=== PATIENT | male | born 1955 | race Two or more races ===

== ENCOUNTER 2020-01-03 09:34 | Outpatient (CLI) | payer MEDICARE ==
[~2020-01-03 09:34] MED LIST: CARV3.122 PO; INSU100V7 SQ; SEVE800T8 PO
== END 2020-01-03 23:59 | disposition home or self-care (01) ==
LOC: MSC 09:34
PROVIDERS: ATTEND Internal Medicine
DX: M25.559 Pain in unspecified hip (principal); F41.9 Anxiety disorder, unspecified; R53.81 Other malaise; I12.0 Hypertensive chronic kidney disease with stage 5 chronic kidney disease or end stage renal disease; N18.6 End stage renal disease; Z99.2 Dependence on renal dialysis; I25.10 Atherosclerotic heart disease of native coronary artery without angina pectoris; D64.9 Anemia, unspecified
CPT/HCPCS: 72110; 73521; G0463

== ENCOUNTER 2020-08-26 11:29 | Outpatient (CLI) | payer MEDICARE | END 2020-08-26 23:59 | disposition home or self-care (01) | LOC: MSC 11:29 | PROVIDERS: ATTEND Internal Medicine | DX: M54.5 Low back pain (principal); R19.7 Diarrhea, unspecified; M25.559 Pain in unspecified hip; R53.81 Other malaise; I12.0 Hypertensive chronic kidney disease with stage 5 chronic kidney disease or end stage renal disease; N18.6 End stage renal disease; Z99.2 Dependence on renal dialysis; I25.10 Atherosclerotic heart disease of native coronary artery without angina pectoris; D64.9 Anemia, unspecified ==

== ENCOUNTER 2020-09-02 10:05 | Outpatient (CLI) | payer MEDICARE | END 2020-09-02 23:59 | disposition home or self-care (01) | LOC: CT 10:05 | PROVIDERS: ATTEND Internal Medicine | DX: S22.089A Unspecified fracture of T11-T12 vertebra, initial encounter for closed fracture (principal); M47.817 Spondylosis without myelopathy or radiculopathy, lumbosacral region; M47.815 Spondylosis without myelopathy or radiculopathy, thoracolumbar region; M51.25 Other intervertebral disc displacement, thoracolumbar region; M51.27 Other intervertebral disc displacement, lumbosacral region; M48.05 Spinal stenosis, thoracolumbar region; K40.20 Bilateral inguinal hernia, without obstruction or gangrene, not specified as recurrent; K80.20 Calculus of gallbladder without cholecystitis without obstruction; K57.30 Diverticulosis of large intestine without perforation or abscess without bleeding; N26.1 Atrophy of kidney (terminal); N28.1 Cyst of kidney, acquired; M51.45 Schmorl's nodes, thoracolumbar region; I51.7 Cardiomegaly; I70.0 Atherosclerosis of aorta; J84.10 Pulmonary fibrosis, unspecified; X58.XXXA Exposure to other specified factors, initial encounter; Y93.89 Activity, other specified; Y92.89 Other specified places as the place of occurrence of the external cause; Y99.8 Other external cause status | CPT/HCPCS: 72148-TC ==

== ENCOUNTER 2020-09-09 11:07 | Inpatient (IN) | payer MEDICARE, OTHER ==
[~2020-09-09] VITALS: Ht 170.2 cm; Wt 79.4 kg
--- NOTE | 2020-09-09 11:25 | NUR ---
BIB FAMILY C/O BILAT FLANK PAIN S/P GLF 10 DAYS AGO. STS LANDED ON L SIDE. PT IS FEBRILE PROCESSING ASSISTANT. PATIENT A/OX4, BREATHING EVEN AND UNLABORED, NO SOB NOTED. UNABLE TO GIVE A URINE SAMPLE AT THIS TIME. LFA AV FISTULA NOTED.
--- NOTE | 2020-09-09 11:50 | NUR ---
IV LINE ESTABLISHED, BLOOD DRAWN AND SENT TO LAB.
[2020-09-09] MEDS ORDERED: ACETAMINOPHEN ES 500 MG TABLET ONE (11:58)
[2020-09-09] MEDS ORDERED: ACETAMINOPHEN ES 500 MG TABLET PO ONE (12:00)
[2020-09-09 12:14] LABS: BASOPHILS % (AUTO) 0.3 % (0.0-2.0); EOSINOPHILS % (AUTO) 0.6 % (0.0-6.0); HEMATOCRIT 35 % (39-51); HEMOGLOBIN 11.3 g/dL (13.5-17.5); LYMPHOCYTES # (AUTO) 0.3 K/uL (0.8-4.8); LYMPHOCYTES % (AUTO) 2.6 % (20.0-44.0); MEAN CORPUSCULAR HGB CONC 33 g/dl (31.0-36.0); MEAN CORPUSCULAR VOLUME 90 fL (80-96); MONOCYTES # (AUTO) 0.8 K/uL (0.1-1.30); MONOCYTES % (AUTO) 5.9 % (2.0-12.0); NEUTROPHILS # (AUTO) 12.1 K/uL (1.8-8.9); NEUTROPHILS % (AUTO) 90.6 % (43.0-81.0); PLATELET COUNT (AUTO) 136 K/uL (150-450); RED BLOOD CELL COUNT(AUTO) 3.85 MIL/uL (4.5-6.0); WHITE BLOOD COUNT (AUTO) 13.4 K/uL (4.3-11.0)
[2020-09-09 12:23] LABS: CALCIUM, SERUM 9.3 mg/dL (8.5-10.1); CARBON DIOXIDE 21 mmol/L (21-32); CHLORIDE 97 mmol/L (98-107); GLUCOSE 155 mg/dL (74-106); POTASSIUM 5.4 mmol/L (3.5-5.1); SODIUM SERUM 131 mmol/L (136-145); UREA NITROGEN, BLOOD 47 mg/dL (7-18)
[2020-09-09 12:28] LABS: ALANINE AMINOTRANSFERASE < 6 U/L (12-78); ALBUMIN 3.5 g/dL (3.4-5.0); ALKALINE PHOSPHATASE 205 U/L (46-116); ASPARTATE AMINOTRANSFERASE 9 U/L (15-37); BILIRUBIN,DIRECT 0.1 mg/dL (0.0-0.2); BILIRUBIN,TOTAL 0.4 mg/dL (0.2-1.0); CREATININE 7.8 mg/dL (0.6-1.3)
[2020-09-09] MEDS ORDERED: CEFTAZIDIME 1 G in IV D5W 50 ML IV ONE (12:30)
--- NOTE | 2020-09-09 12:35 | NUR ---
SUBMITTED MOVE SHEET
--- NOTE | 2020-09-09 12:36 | NUR ---
PAGED EPIC GLACING MACHINE TENDER
--- NOTE | 2020-09-09 12:52 | NUR ---
DR BACK SPEAKING WITH HEADING AND PRIMING OPERATOR DR FUNK FOR ADMISSION
[2020-09-09] MEDS ORDERED: SUCR500T PO (12:54)
[2020-09-09] MEDS ORDERED: IBUP-1953 PO (12:54)
[2020-09-09] MEDS ORDERED: AURYXIA PO (12:54)
[2020-09-09] MEDS ORDERED: CINA30TA2 PO (12:54)
[2020-09-09] MEDS ORDERED: FOLI0.8T2 PO (12:54)
[2020-09-09] MEDS ORDERED: ASPI-1420 PO (12:54)
[2020-09-09] MEDS ORDERED: LOSA100T31 PO (12:54)
[2020-09-09] MEDS ORDERED: METRONIDAZOLE 500MG/ NS 100ML 500 MG in PREMIX 1 EA IV SCH (13:00)
[2020-09-09] MEDS ORDERED: MAGNESIUM HYDROXIDE 30 ML UDC PO PRN ×2 (13:00→15:15)
[2020-09-09] MEDS ORDERED: ACETAMINOPHEN 325 MG TABLET PO PRN ×2 (13:00→15:15)
[2020-09-09] MEDS ORDERED: Z GUARD REMEDY 2 OZ OINT TP PRN ×2 (13:00→15:15)
[2020-09-09] MEDS ORDERED: LABETALOL 20 MG/4 ML VIAL IV PRN ×2 (13:00→15:15)
[2020-09-09] MEDS ORDERED: CEFTRIAXONE 1 G in IV D5W 50 ML IV SCH (13:00)
[2020-09-09] MEDS ORDERED: *INSULIN REGULAR(HUMULIN R)HUM 100 UNIT/ML VIAL SQ PRN (13:00)
[2020-09-09] MEDS ORDERED: INSULIN REGULAR, HUMAN 100 UNIT/ML 3 ML VIAL SQ PRN (13:00)
[2020-09-09] MEDS ORDERED: ONDANSETRON HCL/PF 4 MG/2 ML VIAL IVP PRN ×2 (13:00→15:15)
[2020-09-09] MEDS ORDERED: DEXTROSE 50%-WATER 50 ML DISP.SYRIN IV PRN ×2 (13:00→15:15)
[2020-09-09] MEDS ORDERED: hydrALAZINE HCL IV 20 MG VIAL IV PRN ×2 (13:00→15:15)
[2020-09-09] MEDS ORDERED: ENOXAPARIN SODIUM 40 MG/0.4 ML DISP.SYRIN SQ SCH ×2 (13:00→15:15)
[2020-09-09] MEDS ORDERED: MORPHINE SULFATE INJ 2 MG/ML DISP.SYRIN IV PRN (13:00)
[2020-09-09] MEDS ORDERED: MAG HYDROX/AL HYDROX/SIMETH 30 ML UDC PO PRN ×2 (13:00→15:15)
--- NOTE | 2020-09-09 13:21 | NUR ---
CALLED NURSING ILIANA DORAN. NO BEDS YET
--- NOTE | 2020-09-09 15:06 | NUR ---
report given to Lorraine MARTINEZ for derik.
--- NOTE | 2020-09-09 15:10 | NUR ---
wheeled patient via gurnney accompanied by RN and emt in no distress. RN at bed side to assume care.
--- NOTE | 2020-09-09 15:20 | NUR ---
CAN CRIMPER ADMITTING NOTES RECEIVED PATIENT IN BED, AWAKE, A/O X4. PATIENT ON ROOM AIR. COMPLAINING OF PAIN. IV ACCESS ON R HAND G # 20. WILL CONTINUE TO MONITOR PATIENT.
--- NOTE | 2020-09-09 16:28 | NUR ---
DIE ATTACHER NOTES PATIENT WITH FEVER OF 102.9. PRN TYLENOL ADMINISTERED.
[2020-09-09] MEDS: METRONIDAZOLE 500MG/ NS 100ML 500 MG in PREMIX 1 EA IV SCH ×2 (16:58→21:10)
[2020-09-09] MEDS ORDERED: CARVEDILOL 3.125 MG TABLET PO SCH (17:00)
[2020-09-09] MEDS: BLOOD SUGAR DIAGNOSTIC 1 EACH STRIP VI SCH ×2 (17:04→22:26)
[2020-09-09] MEDS ORDERED: BLOOD SUGAR DIAGNOSTIC 1 EACH STRIP VI SCH (17:30)
[2020-09-09] MEDS: MORPHINE SULFATE INJ 2 MG/ML DISP.SYRIN IV PRN (17:57)
[2020-09-09] MEDS: CARVEDILOL 3.125 MG TABLET PO SCH (17:59)
[2020-09-09] MEDS: CEFTRIAXONE 1 G in IV D5W 50 ML IV SCH (18:00)
--- NOTE | 2020-09-09 19:06 | NUR ---
MACHINE CLOTH TRIMMER NOTES PATIENT COMPLAINING OF LEFT FLANK PAIN 8 OUT OF 10. PRN MORPHINE ADMINISTERED. WILL REASSESS.
--- NOTE | 2020-09-09 19:33 | NUR ---
CREPE SOLE WIRE BRUSHER NOTES PATIENT RESTED COMFORTABLY. ENDORSED TO SPECIAL CRIMES INVESTIGATOR NURSE FOR CK.
--- NOTE | 2020-09-09 19:40 | NUR ---
RN OPENING NOTES PT RECEIVED IN BED. A&OX4. PT IS ON ROOM AIR. CURRENTLY ON BED REST. PT SKIN IS INTACT. PT HAS IV LINE GAUGE 20 ON RIGHT HAND, FLUSHED, PATENT, AND INTACT. ALL SAFETY MEASURES IMPLEMENTED. CALL LIGHT WITHIN REACH. BED ALARM ON. BED LOCKED AND IN LOWEST POSITION,. WILL CONTINUE TO MONITOR.
[2020-09-09 20:00] VITALS: BP 97/38
[2020-09-09] MEDS: HEPARIN SODIUM, PORCINE 5000 UNITS/1 ML VIAL SQ SCH (21:11)
[2020-09-09] MEDS ORDERED: INSULIN GLARGINE HUM REC ANLOG 7 UNIT SQ SCH (22:00)
--- NOTE | 2020-09-09 22:00 | NUR ---
RN NOTE WILL ADMINISTER FLAGYL AT 0100 INSTEAD OF 2200 DUE TO PREVIOUS ADMINISTRATION AT 1658. MEDICATION IS Q8H. FIRST SCHEDULE DOSE WAS AT 1600, SECOND SCHEDULED DOSE SHOULD BE 0000, BUT SAYS 2200, WHICH IS AN ERROR. WILL FOLLOW UP WITH PHARMACY TO CORRECT SCHEDULE IN MORNING. Addendum: 09/10/20 at 0002 by FARRAH BAIRD RN MANAGER DISASTER RECOVERYJUAN MCLAUGHLIN WELL AWARE.
--- NOTE | 2020-09-09 22:26 | NUR ---
RN NOTE PT BLOOD SUGAR WAS 116. NO INSULIN REQUIRED AT THIS TIME.
[2020-09-09] MEDS: *INSULIN REGULAR(HUMULIN R)HUM 100 UNIT/ML VIAL SQ PRN (22:29)
[2020-09-10] VITALS: BP 104/44
[2020-09-10] MEDS: METRONIDAZOLE 500MG/ NS 100ML 500 MG in PREMIX 1 EA IV SCH ×4 (00:45→20:28)
[2020-09-10 04:00] VITALS: BP 121/48
[2020-09-10] MEDS: MORPHINE SULFATE INJ 2 MG/ML DISP.SYRIN IV PRN ×2 (04:21→20:28)
--- NOTE | 2020-09-10 06:00 | NUR ---
RN NOTE LABORATORY CALLED ABOUT CRITICAL RESULT. CULTURE SHOWED GRAM (-) NOE SEEN ON GRAM STAIN. CONTACTED LUIS CHAPARRO NP ALL ORDERS COVERED ALREADY.
--- NOTE | 2020-09-10 06:32 | NUR ---
RN NOTE SPOKE WITH ALBIN FROM [facility], DID NOT HAVE INFO ABOUT PATIENT DISCHARGE TO FACILITY, WANTED TO CONFIRM WITH INSTALLATION DRAFTER. WAITING TO HEAR BACK. LISSETTE FRIEND RN CALLED AMBULANCE TO [facility]. Addendum: 09/10/20 at 0650 by FARRAH BAIRD RN WRONG ENTRY
--- NOTE | 2020-09-10 06:47 | NUR ---
RN CLOSING NOTES NO SIGNIFICANT CHANGES IN PT CONDITION. NO S/S OF RESP DISTRESS/SOB. ALL DUE MEDS GIVEN. PT KEPT CLEAN AND COMFORTABLE. ALL SAFETY MEASURES IMPLEMENTED. WILL ENDORSE TO MORNING SHIFT RN FOR CK.
--- NOTE | 2020-09-10 07:15 | NUR ---
RN NOTE PATIENT OBSERVED ON BED, AWAKE ALERT AND ORIENTED X4, ABLE TO VERBALIZE NEEDS, BREATHING EVEN AND UNLABORED, O2 SAT OF 98% ON RA, ON TELE MONITOR SINUS BRADYCARDIA OF 55 AT THIS TIME, NO COMPLAINS OF PAIN, CONTINENT ON BOWEL AND BLADDER, IV PATENT ON RIGHT HAND G# 20 FLUSHING WELL, ISOLATION PRECAUTION OBSERVED, CALL LIGHT WITHIN REACH, BED WHEELS LOCK, SAFETY MEASURES OBSERVED, CALL LIGHT WITHIN REACH.
[2020-09-10] MEDS: BLOOD SUGAR DIAGNOSTIC 1 EACH STRIP VI SCH ×4 (07:44→21:56)
[2020-09-10] MEDS: INSULIN REGULAR, HUMAN 100 UNIT/ML 3 ML VIAL SQ PRN (07:44)
[2020-09-10 08:00] VITALS: BP 121/48
[2020-09-10] MEDS: CARVEDILOL 3.125 MG TABLET PO SCH ×2 (08:28→16:15)
[2020-09-10] MEDS: HEPARIN SODIUM, PORCINE 5000 UNITS/1 ML VIAL SQ SCH ×2 (08:28→21:47)
--- NOTE | 2020-09-10 08:50 | NUR ---
RN NOTE PATIENT RECIVED LAST DOSE OF FLAGYL 0045, NOTIFIED AND CLARIFIED WITH PHARMACY ABOUT LAST ADMINISTRATION OF FLAGYL OK TO GIVE 09 MEDICATION Addendum: 09/10/20 at 1022 by SEAN GRANADOS RN RN NOTE PATIENT RECEIVED LAST DOSE OF FLAGYL 0045, NOTIFIED AND CLARIFIED WITH PHARMACY ABOUT LAST ADMINISTRATION OF FLAGYL, OK TO GIVE 0800 , MEDICATION WAS ORIGNIALY SCHEDULED FOR 0500, MEDICATION ORDER IS Q8H.
[2020-09-10 09:20] LABS: BASOPHILS # (AUTO) 0.1 K/uL (0.0-0.2); BASOPHILS % (AUTO) 0.8 % (0.0-2.0); EOSINOPHILS % (AUTO) 0.2 % (0.0-6.0); HEMATOCRIT 31 % (39-51); HEMOGLOBIN 10.4 g/dL (13.5-17.5); LYMPHOCYTES # (AUTO) 0.3 K/uL (0.8-4.8); LYMPHOCYTES % (AUTO) 3.6 % (20.0-44.0); MEAN CORPUSCULAR HGB CONC 34 g/dl (31.0-36.0); MEAN CORPUSCULAR VOLUME 88 fL (80-96); MONOCYTES # (AUTO) 0.5 K/uL (0.1-1.30); MONOCYTES % (AUTO) 6.3 % (2.0-12.0); NEUTROPHILS # (AUTO) 6.9 K/uL (1.8-8.9); NEUTROPHILS % (AUTO) 89.1 % (43.0-81.0); PLATELET COUNT (AUTO) 132 K/uL (150-450); RED BLOOD CELL COUNT(AUTO) 3.52 MIL/uL (4.5-6.0); WHITE BLOOD COUNT (AUTO) 7.7 K/uL (4.3-11.0)
[2020-09-10 09:36] LABS: CALCIUM, SERUM 9.1 mg/dL (8.5-10.1); POTASSIUM 5.2 mmol/L (3.5-5.1)
[2020-09-10 09:43] LABS: ALBUMIN 3.2 g/dL (3.4-5.0); BILIRUBIN,TOTAL 0.4 mg/dL (0.2-1.0); TOTAL PROTEIN, SERUM 7.6 g/dL (6.4-8.2)
[2020-09-10 09:45] LABS: CREATININE 9.9 mg/dL (0.6-1.3)
--- NOTE | 2020-09-10 09:52 | NUR ---
RN NOTE PATIENT SEEN BY DR SOLORIO, LAB VALUES REPORTED TO MD, CREATININE OF 9.9, PATIENT ON HD MD AWARE, WILL CONTINUE TO MONITOR.
[2020-09-10] MEDS: *INSULIN REGULAR(HUMULIN R)HUM 100 UNIT/ML VIAL SQ PRN ×3 (11:29→21:57)
[2020-09-10 12:00] VITALS: BP 128/51
--- NOTE | 2020-09-10 14:09 | NUR ---
RN NOTE PHARMACIST RECOMMENDATION ADMINISTER FLAGYL AT 1400 THEN NEXT DOSE AT 2100, NO ASE NOTED AT THIS TIME WILL CONTINUE TO MONITOR.
[2020-09-10 16:00] VITALS: BP 133/58
[2020-09-10] MEDS: CEFTRIAXONE 1 G in IV D5W 50 ML IV SCH (16:16)
--- NOTE | 2020-09-10 18:20 | NUR ---
RN NOTE PATIENT OBSERVED ON BED, AWAKE ALERT AND ORIENTED X4, ABLE TO VERBALIZE NEEDS, BREATHING EVEN AND UNLABORED, O2 SAT OF 98% ON RA, ON TELE MONITOR SINUS BRADYCARDIA OF 56 AT THIS TIME, NO COMPLAINS OF PAIN, CONTINENT ON BOWEL AND BLADDER, IV PATENT ON RIGHT HAND G# 20 FLUSHING WELL ON IV ATB NO ASE NOTED, ISOLATION PRECAUTION OBSERVED, MD AWARE OF PATIENT CURRENT CONDITION CALL LIGHT WITHIN REACH, BED WHEELS LOCK, SAFETY MEASURES OBSERVED, CALL LIGHT WITHIN REACH. WILL ENDORSE TO NOC SHIFT
[2020-09-10 20:00] VITALS: BP 157/58
--- NOTE | 2020-09-10 20:00 | NUR ---
RN NOTE RECEIVED PT IN BED, ALERT ORIENTED X4. ON ROOM AIR. DENIES ANY SOB OR CHEST PAIN. TELE MONITOR SHOWS SR WITH HR OF 60. PT COMPLAINED OF LEFT LOWER BACK PAIN. NO SIGNS OF DISTRESS NOTED. ALL SAFETY MEASURES IN PLACE. WILL CONTINUE TO MONITOR.
--- NOTE | 2020-09-10 21:57 | NUR ---
rn note fsbs at 107. no insulin coverage given. will continue to monitor.
[2020-09-11] VITALS: BP 143/61
--- NOTE | 2020-09-11 00:30 | NUR ---
RN NOTE PT TEMP 99.9. COOLING MEASURES APPLIED. WILL CONTINUE TO MONITOR.
[2020-09-11] MEDS: MORPHINE SULFATE INJ 2 MG/ML DISP.SYRIN IV PRN ×2 (02:20→13:08)
--- NOTE | 2020-09-11 02:29 | NUR ---
rn note pt complained of left lower back 8/10 pain. morphine iv given
[2020-09-11 04:00] VITALS: BP 156/58
[2020-09-11] MEDS: METRONIDAZOLE 500MG/ NS 100ML 500 MG in PREMIX 1 EA IV SCH (05:20)
[2020-09-11 06:18] LABS: BASOPHILS % (AUTO) 0.5 % (0.0-2.0); HEMATOCRIT 30 % (39-51); HEMOGLOBIN 9.9 g/dL (13.5-17.5); LYMPHOCYTES # (AUTO) 0.5 K/uL (0.8-4.8); LYMPHOCYTES % (AUTO) 10.3 % (20.0-44.0); MEAN CORPUSCULAR HGB CONC 33 g/dl (31.0-36.0); MEAN CORPUSCULAR VOLUME 88 fL (80-96); MONOCYTES # (AUTO) 0.5 K/uL (0.1-1.30); MONOCYTES % (AUTO) 10.2 % (2.0-12.0); NEUTROPHILS # (AUTO) 3.5 K/uL (1.8-8.9); PLATELET COUNT (AUTO) 131 K/uL (150-450); RED BLOOD CELL COUNT(AUTO) 3.36 MIL/uL (4.5-6.0); WHITE BLOOD COUNT (AUTO) 4.6 K/uL (4.3-11.0)
--- NOTE | 2020-09-11 06:45 | NUR ---
RN NOTE PT SITTING ON CHAIR. DENIES ANY PAIN OR SOB. TOLERATING ROOM AIR. NO DISTRESS NOTED. PT ABLE TO MAKE NEEDS KNOWN. AV FISTULA ON LFA, BRUIT AND THRILL PRESENT. NO BLEEDING NOTED. NEEDS ATTENDED. KEPT COMFORTABLE. ALL SAFETY MEASURES MAINTAINED. WILL ENDORSE TO NEXT SHIFT NURSE FOR CK.
[2020-09-11 07:09] LABS: BILIRUBIN,TOTAL 0.5 mg/dL (0.2-1.0); CALCIUM, SERUM 8.8 mg/dL (8.5-10.1); TOTAL PROTEIN, SERUM 7.1 g/dL (6.4-8.2)
--- NOTE | 2020-09-11 07:10 | NUR ---
RN NOTE PATIENT OBSERVED ON BED, AWAKE ALERT AND ORIENTED X4, ABLE TO VERBALIZE NEEDS, BREATHING EVEN AND UNLABORED, O2 SAT OF 98% ON RA, PATIENT ON ATB NO ASE NOTED AT THIS TIME, ON TELE MONITOR SINUS BRADYCARDIA OF 56 AT THIS TIME, NO COMPLAINS OF PAIN, CONTINENT ON BOWEL AND BLADDER, IV PATENT ON RIGHT HAND G# 20 FLUSHING WELL, ISOLATION PRECAUTION OBSERVED, CALL LIGHT WITHIN REACH, BED WHEELS LOCK, SAFETY MEASURES OBSERVED, CALL LIGHT WITHIN REACH.
[2020-09-11] MEDS: BLOOD SUGAR DIAGNOSTIC 1 EACH STRIP VI SCH ×4 (07:45→22:56)
[2020-09-11] MEDS ORDERED: INSULIN REGULAR, HUMAN 100 UNIT/ML 3 ML VIAL ONE ×2 (07:58→08:01)
[2020-09-11 08:00] VITALS: BP 148/62
[2020-09-11] MEDS: INSULIN REGULAR, HUMAN 100 UNIT/ML 3 ML VIAL SQ PRN ×3 (08:06→16:59)
[2020-09-11] MEDS: CARVEDILOL 3.125 MG TABLET PO SCH ×2 (08:14→17:12)
[2020-09-11] MEDS: HEPARIN SODIUM, PORCINE 5000 UNITS/1 ML VIAL SQ SCH ×2 (08:16→22:51)
--- NOTE | 2020-09-11 10:35 | NUR ---
RN NOTE PATIENT SEEN BY DR. SOLORIO, LAB VALUES RELAYED TO , CONTACTED DR. QUINTEROS FOR PATIENT HD, WILL HAVE HD TODAY AT 1300.
[2020-09-11 12:00] VITALS: BP 137/62
[2020-09-11] MEDS ORDERED: GENTAMICIN 80 MG in IV D5W 50 ML IV PRN (13:00)
[2020-09-11] MEDS: METRONIDAZOLE 500 MG TABLET PO SCH ×2 (13:07→22:47)
[2020-09-11] MEDS ORDERED: GENTAMICIN 100 MG in IV D5W 100 ML IV ONE (14:00)
--- NOTE | 2020-09-11 15:30 | NUR ---
RN NOTE PATIENT WHEELED TO MRI LAB, PATIENT CONDITION WNL AT THIS TIME, WILL CONTINUE TO MONITOR.
[2020-09-11 16:00] VITALS: BP 146/62
--- NOTE | 2020-09-11 18:55 | NUR ---
RN NOTE PATIENT OBSERVED ON BED, AWAKE ALERT AND ORIENTED X4, ABLE TO VERBALIZE NEEDS, BREATHING EVEN AND UNLABORED, O2 SAT OF 97% ON RA, PATIENT ON ATB NO ASE NOTED AT THIS TIME, ON TELE MONITOR SINUS BRADYCARDIA OF 56 AT THIS TIME, NO COMPLAINS OF PAIN, CONTINENT ON BOWEL AND BLADDER, IV PATENT ON RIGHT HAND G# 20 FLUSHING WELL ON IV ATB NO ASE NOTED, ISOLATION PRECAUTION OBSERVED, PATIENT FOR HEMODIALYSIS SEEN BY AUTOMATIC LATHE SETTER, CALL LIGHT WITHIN REACH, BED WHEELS LOCK, SAFETY MEASURES OBSERVED, CALL LIGHT WITHIN REACH, WILL ENDORSE TO NOC SHIFT
[2020-09-11 20:00] VITALS: BP 149/71
--- NOTE | 2020-09-11 20:00 | NUR ---
RN NOTE RECEIVED PT ALERT ORIENTED, PT STARTED DIALYSIS. DENIES ANY PAIN AT THIS TIME, NO DISTRESS NOTED. DIALYSIS NURSE AT BEDSIDE. IV PATENT AND INTACT. ALL SAFETY IN PLACE. WILL CONTINUE TO MONITOR.
--- NOTE | 2020-09-11 22:40 | NUR ---
RN NOTE PT DONE WITH DIALYSIS. NO SIGNS OF DISTRESS NOTED. REMOVED 2500 CC. WILL CONTINUE TO MONITOR.
[2020-09-11] MEDS ORDERED: GENTAMICIN 80 MG/2 ML VIAL ONE (22:49)
--- NOTE | 2020-09-11 22:57 | NUR ---
rn note fsbs at 135. pt refused to have the insulin. will continue to monitor.
[2020-09-11] MEDS: *INSULIN REGULAR(HUMULIN R)HUM 100 UNIT/ML VIAL SQ PRN (23:51)
[2020-09-12] VITALS: BP 144/74
--- NOTE | 2020-09-12 00:15 | NUR ---
rn note random gentamycin <2. will give iv gentamycin post hd as ordered.
[2020-09-12] MEDS: MORPHINE SULFATE INJ 2 MG/ML DISP.SYRIN IV PRN ×3 (00:23→18:01)
--- NOTE | 2020-09-12 00:23 | NUR ---
RN NOTE PT COMPLAINED OF LEFT SIDED/LOWER BACK PAIN. MORPHINE IV GIVEN ORDERED. WILL CONTINUE TO MONITOR.
[2020-09-12 04:00] VITALS: BP 150/69
[2020-09-12] MEDS: METRONIDAZOLE 500 MG TABLET PO SCH ×2 (05:28→12:28)
--- NOTE | 2020-09-12 07:00 | NUR ---
RN NOTE NO SIGNIFICANT CHANGES NOTED. DENIES ANY PAIN OR SOB. TOLERATING ROOM AIR. NO DISTRESS NOTED. PT ABLE TO MAKE NEEDS KNOWN. AV FISTULA ON LFA, BRUIT AND THRILL PRESENT. NO BLEEDING NOTED. NEEDS ATTENDED. KEPT COMFORTABLE. ALL SAFETY MEASURES MAINTAINED. WILL ENDORSE TO NEXT SHIFT NURSE FOR CK.
[2020-09-12 07:16] LABS: BASOPHILS % (AUTO) 1.1 % (0.0-2.0); EOSINOPHILS % (AUTO) 4.8 % (0.0-6.0); HEMATOCRIT 29 % (39-51); HEMOGLOBIN 9.8 g/dL (13.5-17.5); LYMPHOCYTES # (AUTO) 0.5 K/uL (0.8-4.8); LYMPHOCYTES % (AUTO) 11.7 % (20.0-44.0); MEAN CORPUSCULAR HGB CONC 34 g/dl (31.0-36.0); MEAN CORPUSCULAR VOLUME 87 fL (80-96); MONOCYTES # (AUTO) 0.6 K/uL (0.1-1.30); MONOCYTES % (AUTO) 13.6 % (2.0-12.0); NEUTROPHILS # (AUTO) 2.8 K/uL (1.8-8.9); NEUTROPHILS % (AUTO) 68.8 % (43.0-81.0); PLATELET COUNT (AUTO) 175 K/uL (150-450); RED BLOOD CELL COUNT(AUTO) 3.32 MIL/uL (4.5-6.0); WHITE BLOOD COUNT (AUTO) 4.1 K/uL (4.3-11.0)
--- NOTE | 2020-09-12 07:58 | NUR ---
RN NOTE PATIENT OBSERVED ON BED, AWAKE ALERT AND ORIENTED X4, ABLE TO VERBALIZE NEEDS, BREATHING EVEN AND UNLABORED, O2 SAT OF 97% ON RA, S/P HEMODIALYSIS, PATIENT ON ATB NO ASE NOTED AT THIS TIME, ON TELE MONITOR SINUS BRADYCARDIA OF 57 AT THIS TIME, NO COMPLAINS OF PAIN, CONTINENT ON BOWEL AND BLADDER, IV PATENT ON RIGHT HAND G# 20 FLUSHING WELL, ISOLATION PRECAUTION OBSERVED, CALL LIGHT WITHIN REACH, BED WHEELS LOCK, SAFETY MEASURES OBSERVED, CALL LIGHT WITHIN REACH.
[2020-09-12 08:00] VITALS: BP 146/69
[2020-09-12] MEDS: BLOOD SUGAR DIAGNOSTIC 1 EACH STRIP VI SCH ×3 (08:11→16:48)
[2020-09-12] MEDS: INSULIN REGULAR, HUMAN 100 UNIT/ML 3 ML VIAL SQ PRN ×3 (08:11→16:49)
[2020-09-12] MEDS: CARVEDILOL 3.125 MG TABLET PO SCH ×2 (09:47→16:48)
[2020-09-12] MEDS: HEPARIN SODIUM, PORCINE 5000 UNITS/1 ML VIAL SQ SCH (09:50)
[2020-09-12 10:14] LABS: ALBUMIN 3.3 g/dL (3.4-5.0); BILIRUBIN,TOTAL 0.5 mg/dL (0.2-1.0); CALCIUM, SERUM 9.4 mg/dL (8.5-10.1); POTASSIUM 4.6 mmol/L (3.5-5.1); TOTAL PROTEIN, SERUM 7.7 g/dL (6.4-8.2)
[2020-09-12 11:05] LABS: CREATININE 8.4 mg/dL (0.6-1.3)
[2020-09-12 12:00] VITALS: BP 145/72
--- NOTE | 2020-09-12 12:03 | NUR ---
RN NOTE SEEN BY DR. QUINTEROS PATIENT TO HAVE DIALYSIS TODAY. SEEN BY DR. ZUNIGA PATIENT OK FOR DISCHARGE TODAY AFTER DIALYSIS UPDATED MD PATIENT CURRENT CONDITION.
[2020-09-12] MEDS ORDERED: LABETALOL HCL IV 100MG VIAL IV PRN (12:30)
[2020-09-12] MEDS ORDERED: OXYC-117 PO ×3 (15:16→19:24)
[2020-09-12] MEDS ORDERED: METR500T PO (15:16)
[2020-09-12 16:00] VITALS: BP 142/71
[2020-09-12 16:48] VITALS: BP 155/75
[2020-09-12] MEDS ORDERED: METR-147 PO (16:58)
--- NOTE | 2020-09-12 18:33 | NUR ---
RN NOTE PATIENT DISCHARGE TO HOME ORDERED, DISCHARGE INSTRUCTION GIVEN TO PATIENT, PATIENT UNDERSTAND, PATIENT VTS WNL, S/P DIALYSIS, NO PAIN COMPLAINS.
== END 2020-09-12 18:32 | disposition home or self-care (01) | DRG 871 ==
LOC: ER 11:10 → TELE1 15:46 → UNDODISIN 09-12 16:55
PROVIDERS: ADMIT Internal Medicine; ATTEND Internal Medicine
PROC: 5A1D70Z Performance of Urinary Filtration, Intermittent, Less than 6 Hours Per Day (ICD-10-PCS; principal; 2020-09-11)
DX: A41.52 Sepsis due to Pseudomonas (principal); N18.6 End stage renal disease; E87.1 Hypo-osmolality and hyponatremia; I16.1 Hypertensive emergency; E87.2 Acidosis; M48.54XA Collapsed vertebra, not elsewhere classified, thoracic region, initial encounter for fracture; I12.0 Hypertensive chronic kidney disease with stage 5 chronic kidney disease or end stage renal disease; D69.6 Thrombocytopenia, unspecified; E11.22 Type 2 diabetes mellitus with diabetic chronic kidney disease; D64.9 Anemia, unspecified; E78.5 Hyperlipidemia, unspecified; E78.00 Pure hypercholesterolemia, unspecified; E87.5 Hyperkalemia; Z99.2 Dependence on renal dialysis; E87.8 Other disorders of electrolyte and fluid balance, not elsewhere classified; Z79.899 Other long term (current) drug therapy; Z79.82 Long term (current) use of aspirin; K52.9 Noninfective gastroenteritis and colitis, unspecified; K57.90 Diverticulosis of intestine, part unspecified, without perforation or abscess without bleeding; K80.20 Calculus of gallbladder without cholecystitis without obstruction; G89.29 Other chronic pain; M40.209 Unspecified kyphosis, site unspecified; Z91.81 History of falling
CPT/HCPCS: 36415; 71045-TC; 72146-TC; 80048-TC; 80053-TC; 80076-TC; 80170-TC; 82962-TC; 83605-TC; 84484-TC; 85025-TC; 85730-TC; 87040-TC; 87081-TC; 87186-TC; 90935-TC; A4216; C9803; G0378; J0696; J0713; J1580; J1644; J1815; J2270; J3490; J7050; J7060; U0003

== ENCOUNTER 2020-09-30 09:21 | Outpatient (CLI) | payer MEDICARE, OTHER ==
[~2020-09-30 09:21] MED LIST changes: +ASPI-1420 PO; +AURYXIA PO; +CINA30TA2 PO; +FOLI0.8T2 PO; +IBUP-1953 PO; -INSU100V7 SQ; +LOSA100T31 PO; +METR-147 PO; +OXYC-117 PO; +SUCR500T PO
== END 2020-09-30 23:59 | disposition home or self-care (01) ==
LOC: MSC 09:21
PROVIDERS: ATTEND Internal Medicine
DX: M54.5 Low back pain (principal); M25.559 Pain in unspecified hip; I12.0 Hypertensive chronic kidney disease with stage 5 chronic kidney disease or end stage renal disease; N18.6 End stage renal disease; Z99.2 Dependence on renal dialysis; R60.0 Localized edema; R53.81 Other malaise; D64.9 Anemia, unspecified; F41.9 Anxiety disorder, unspecified

== ENCOUNTER 2020-11-18 09:15 | Outpatient (CLI) | payer MEDICARE, OTHER | END 2020-11-18 23:59 | disposition home or self-care (01) | LOC: MSC 09:15 | PROVIDERS: ATTEND Anesthesiology | DX: M48.54XA Collapsed vertebra, not elsewhere classified, thoracic region, initial encounter for fracture (principal); M51.26 Other intervertebral disc displacement, lumbar region; M47.817 Spondylosis without myelopathy or radiculopathy, lumbosacral region; M62.830 Muscle spasm of back; E11.22 Type 2 diabetes mellitus with diabetic chronic kidney disease; I12.0 Hypertensive chronic kidney disease with stage 5 chronic kidney disease or end stage renal disease; N18.6 End stage renal disease; Z99.2 Dependence on renal dialysis; I25.10 Atherosclerotic heart disease of native coronary artery without angina pectoris ==

== ENCOUNTER 2020-11-20 11:10 | Outpatient (CLI) | payer MEDICARE, OTHER ==
[2020-11-20 14:02] LABS: FREE T4 (FREE THYROXINE) 0.96 ng/dL (0.76-1.46); THYROID STIMULATING HORMONE 1.648 uIU/mL (0.358-3.74)
[2020-11-20 14:04] LABS: C-REACTIVE PROTEIN 1.5 mg/dL (0.0-0.9)
== END 2020-11-20 23:59 | disposition home or self-care (01) ==
LOC: MSC 11:10
PROVIDERS: ATTEND Internal Medicine
DX: M54.5 Low back pain (principal); M81.8 Other osteoporosis without current pathological fracture; Z87.19 Personal history of other diseases of the digestive system; K59.00 Constipation, unspecified; L29.9 Pruritus, unspecified; M25.559 Pain in unspecified hip; F41.9 Anxiety disorder, unspecified; R53.81 Other malaise; I12.0 Hypertensive chronic kidney disease with stage 5 chronic kidney disease or end stage renal disease; N18.6 End stage renal disease; Z99.2 Dependence on renal dialysis; I25.10 Atherosclerotic heart disease of native coronary artery without angina pectoris; D64.9 Anemia, unspecified
CPT/HCPCS: 36415; 82306; 82607; 82746; 83036; 84439; 84443; 85652; 86140; G0463

== ENCOUNTER 2020-11-25 09:15 | Outpatient (CLI) | payer MEDICARE, OTHER | END 2020-11-25 23:59 | disposition home or self-care (01) | LOC: WOU 09:15 | PROVIDERS: ATTEND Podiatrist Foot & Ankle Surgery | DX: E11.621 Type 2 diabetes mellitus with foot ulcer (principal); L97.528 Non-pressure chronic ulcer of other part of left foot with other specified severity; E11.22 Type 2 diabetes mellitus with diabetic chronic kidney disease; E11.42 Type 2 diabetes mellitus with diabetic polyneuropathy; I12.0 Hypertensive chronic kidney disease with stage 5 chronic kidney disease or end stage renal disease; N18.6 End stage renal disease; Z99.2 Dependence on renal dialysis; B35.1 Tinea unguium; B35.3 Tinea pedis; M20.42 Other hammer toe(s) (acquired), left foot; M20.41 Other hammer toe(s) (acquired), right foot | CPT/HCPCS: G0463 ==

== ENCOUNTER 2020-12-09 09:15 | Outpatient (CLI) | payer MEDICARE, OTHER ==
[2020-12-09] MEDS ORDERED: CLOTRIMAZOLE 1% 15 GM TUBE TP ONE (09:42)
== END 2020-12-09 23:59 | disposition home or self-care (01) ==
LOC: WOU 09:15
PROVIDERS: ATTEND Podiatrist Foot & Ankle Surgery
DX: E11.42 Type 2 diabetes mellitus with diabetic polyneuropathy (principal); E11.22 Type 2 diabetes mellitus with diabetic chronic kidney disease; I12.0 Hypertensive chronic kidney disease with stage 5 chronic kidney disease or end stage renal disease; N18.6 End stage renal disease; Z99.2 Dependence on renal dialysis; B35.1 Tinea unguium; B35.3 Tinea pedis; M20.42 Other hammer toe(s) (acquired), left foot; M20.41 Other hammer toe(s) (acquired), right foot; L84 Corns and callosities
CPT/HCPCS: G0463

== ENCOUNTER 2021-01-06 09:20 | Outpatient (CLI) | payer MEDICARE, OTHER | END 2021-01-06 23:59 | disposition home or self-care (01) | LOC: WOU 09:20 | PROVIDERS: ATTEND Podiatrist Foot & Ankle Surgery | DX: E11.42 Type 2 diabetes mellitus with diabetic polyneuropathy (principal); E11.22 Type 2 diabetes mellitus with diabetic chronic kidney disease; I12.0 Hypertensive chronic kidney disease with stage 5 chronic kidney disease or end stage renal disease; N18.6 End stage renal disease; Z99.2 Dependence on renal dialysis; M20.42 Other hammer toe(s) (acquired), left foot; M20.41 Other hammer toe(s) (acquired), right foot; L84 Corns and callosities; B35.1 Tinea unguium; B35.3 Tinea pedis; Z86.31 Personal history of diabetic foot ulcer | CPT/HCPCS: G0463 ==

== ENCOUNTER 2021-05-19 10:20 | Outpatient (CLI) | payer BC, OTHER | END 2021-05-19 23:59 | disposition home or self-care (01) | LOC: MSC 10:20 → MERGE 12:19 → MSC 23:59 | PROVIDERS: ATTEND Anesthesiology | DX: M48.54XD Collapsed vertebra, not elsewhere classified, thoracic region, subsequent encounter for fracture with routine healing (principal); M51.26 Other intervertebral disc displacement, lumbar region; M47.817 Spondylosis without myelopathy or radiculopathy, lumbosacral region; M62.830 Muscle spasm of back; E11.22 Type 2 diabetes mellitus with diabetic chronic kidney disease; N18.6 End stage renal disease; Z99.2 Dependence on renal dialysis; Z79.891 Long term (current) use of opiate analgesic ==

== ENCOUNTER → 2021-05-19 | Outpatient (CLI) | payer BC, OTHER ==
[~2021-05-19] MED LIST changes: +CARV6.252 PO; +GABA300C PO; +PRAV40TA3 PO; +SEVE800T7 PO
== END | disposition home or self-care (01) ==
LOC: MSC 09:30
PROVIDERS: ATTEND Internal Medicine
DX: I95.9 Hypotension, unspecified (principal); M62.81 Muscle weakness (generalized); M54.50 Low back pain, unspecified; M48.54XD Collapsed vertebra, not elsewhere classified, thoracic region, subsequent encounter for fracture with routine healing; M70.31 Other bursitis of elbow, right elbow; R05.9 Cough, unspecified; I12.0 Hypertensive chronic kidney disease with stage 5 chronic kidney disease or end stage renal disease; N18.6 End stage renal disease; Z99.2 Dependence on renal dialysis; L29.9 Pruritus, unspecified; Z87.19 Personal history of other diseases of the digestive system; K59.00 Constipation, unspecified; M25.551 Pain in right hip; M25.552 Pain in left hip; R53.81 Other malaise; I25.10 Atherosclerotic heart disease of native coronary artery without angina pectoris; D64.9 Anemia, unspecified; Z79.899 Other long term (current) drug therapy

== ENCOUNTER 2021-06-02 11:25 | Outpatient (CLI) | payer BC, OTHER | END 2021-06-02 23:59 | disposition home or self-care (01) | LOC: MSC 11:25 | PROVIDERS: ATTEND Anesthesiology | DX: M48.54XD Collapsed vertebra, not elsewhere classified, thoracic region, subsequent encounter for fracture with routine healing (principal); M51.26 Other intervertebral disc displacement, lumbar region; M47.817 Spondylosis without myelopathy or radiculopathy, lumbosacral region; M62.830 Muscle spasm of back; Z79.891 Long term (current) use of opiate analgesic; Z99.2 Dependence on renal dialysis ==

== ENCOUNTER → 2021-06-11 | Outpatient (CLI) | payer BC, OTHER | END | disposition home or self-care (01) | LOC: MSC 09:16 | PROVIDERS: ATTEND Internal Medicine | DX: M62.81 Muscle weakness (generalized) (principal); R63.0 Anorexia; Z68.24 Body mass index [BMI] 24.0-24.9, adult; I95.9 Hypotension, unspecified; M54.9 Dorsalgia, unspecified; M70.31 Other bursitis of elbow, right elbow; R05.9 Cough, unspecified; I12.0 Hypertensive chronic kidney disease with stage 5 chronic kidney disease or end stage renal disease; N18.6 End stage renal disease; Z99.2 Dependence on renal dialysis; L29.9 Pruritus, unspecified; Z87.19 Personal history of other diseases of the digestive system; K59.00 Constipation, unspecified; F41.9 Anxiety disorder, unspecified; R53.81 Other malaise; I25.10 Atherosclerotic heart disease of native coronary artery without angina pectoris; D64.9 Anemia, unspecified; Z79.899 Other long term (current) drug therapy ==

== ENCOUNTER → 2021-06-16 | Outpatient (CLI) | payer MEDICARE, OTHER ==
[~2021-06-16] MED LIST changes: +HYDROCORTISONE 1% CREAM 28.35 GM TUBE TP ONE
[2021-06-16 11:57] LABS: BASOPHILS % (AUTO) 0.5 % (0.0-2.0); EOSINOPHILS % (AUTO) 4.9 % (0.0-6.0); HEMATOCRIT 27 % (39-51); HEMOGLOBIN 9.2 g/dL (13.5-17.5); LYMPHOCYTES # (AUTO) 0.7 K/uL (0.8-4.8); LYMPHOCYTES % (AUTO) 8.9 % (20.0-44.0); MEAN CORPUSCULAR HGB CONC 34 g/dl (31.0-36.0); MEAN CORPUSCULAR VOLUME 87 fL (80-96); MONOCYTES # (AUTO) 0.5 K/uL (0.1-1.30); MONOCYTES % (AUTO) 7.2 % (2.0-12.0); NEUTROPHILS # (AUTO) 5.9 K/uL (1.8-8.9); NEUTROPHILS % (AUTO) 78.5 % (43.0-81.0); PLATELET COUNT (AUTO) 232 K/uL (150-450); RED BLOOD CELL COUNT(AUTO) 3.12 MIL/uL (4.5-6.0); WHITE BLOOD COUNT (AUTO) 7.5 K/uL (4.3-11.0)
== END | disposition home or self-care (01) ==
LOC: WOU 10:20
PROVIDERS: ATTEND Podiatrist Foot & Ankle Surgery
DX: R60.0 Localized edema (principal); L03.116 Cellulitis of left lower limb; E11.22 Type 2 diabetes mellitus with diabetic chronic kidney disease; I12.0 Hypertensive chronic kidney disease with stage 5 chronic kidney disease or end stage renal disease; N18.6 End stage renal disease; Z99.2 Dependence on renal dialysis
CPT/HCPCS: 36415; 83036; 85025; 85652; 86140; G0463

== ENCOUNTER 2021-06-19 09:10 | Outpatient (CLI) | payer MEDICARE, OTHER ==
[~2021-06-19 09:10] MED LIST changes: -HYDROCORTISONE 1% CREAM 28.35 GM TUBE TP ONE
== END 2021-06-20 23:59 | disposition home or self-care (01) ==
LOC: WOU 09:10
PROVIDERS: ATTEND Podiatrist Foot & Ankle Surgery
DX: L03.116 Cellulitis of left lower limb (principal); R60.0 Localized edema; E11.22 Type 2 diabetes mellitus with diabetic chronic kidney disease; I12.0 Hypertensive chronic kidney disease with stage 5 chronic kidney disease or end stage renal disease; N18.6 End stage renal disease; Z99.2 Dependence on renal dialysis
CPT/HCPCS: G0463

== ENCOUNTER 2021-06-23 09:10 | Outpatient (CLI) | payer MEDICARE, OTHER ==
[2021-06-23] MEDS ORDERED: HYDROCORTISONE 1% CREAM 28.35 GM TUBE TP ONE (10:09)
== END 2021-06-23 23:59 | disposition home or self-care (01) ==
LOC: WOU 09:10
PROVIDERS: ATTEND Podiatrist Foot & Ankle Surgery
DX: L03.116 Cellulitis of left lower limb (principal); E11.22 Type 2 diabetes mellitus with diabetic chronic kidney disease; I12.0 Hypertensive chronic kidney disease with stage 5 chronic kidney disease or end stage renal disease; N18.6 End stage renal disease; Z99.2 Dependence on renal dialysis; R60.0 Localized edema
CPT/HCPCS: 36415; 85652; 86140; G0463

== ENCOUNTER 2021-06-30 10:00 | Outpatient (CLI) | payer MEDICARE, OTHER ==
[2021-06-30] MEDS ORDERED: HYDROCORTISONE 1% CREAM 28.35 GM TUBE TP ONE (11:08)
[2021-06-30 11:57] LABS: BASOPHILS # (AUTO) 0.1 K/uL (0.0-0.2); BASOPHILS % (AUTO) 1.3 % (0.0-2.0); EOSINOPHILS % (AUTO) 6.5 % (0.0-6.0); HEMATOCRIT 28 % (39-51); HEMOGLOBIN 9.1 g/dL (13.5-17.5); LYMPHOCYTES # (AUTO) 0.6 K/uL (0.8-4.8); LYMPHOCYTES % (AUTO) 12.5 % (20.0-44.0); MEAN CORPUSCULAR HGB CONC 33 g/dl (31.0-36.0); MEAN CORPUSCULAR VOLUME 91 fL (80-96); MONOCYTES # (AUTO) 0.4 K/uL (0.1-1.30); MONOCYTES % (AUTO) 8.3 % (2.0-12.0); NEUTROPHILS # (AUTO) 3.7 K/uL (1.8-8.9); NEUTROPHILS % (AUTO) 71.4 % (43.0-81.0); PLATELET COUNT (AUTO) 251 K/uL (150-450); RED BLOOD CELL COUNT(AUTO) 3.07 MIL/uL (4.5-6.0); WHITE BLOOD COUNT (AUTO) 5.2 K/uL (4.3-11.0)
== END 2021-06-30 23:59 | disposition home or self-care (01) ==
LOC: WOU 10:00
PROVIDERS: ATTEND Podiatrist Foot & Ankle Surgery
DX: L03.116 Cellulitis of left lower limb (principal); R60.0 Localized edema; N18.6 End stage renal disease
CPT/HCPCS: 36415; 85025; 85652; 86140; G0463

== ENCOUNTER 2021-07-03 09:00 | Outpatient (CLI) | payer MEDICARE, OTHER ==
[2021-07-03] MEDS ORDERED: CLOTRIMAZOLE 1% 15 GM TUBE TP ONE (09:42)
== END 2021-07-03 23:59 | disposition home or self-care (01) ==
LOC: WOU 09:00
PROVIDERS: ATTEND Podiatrist Foot & Ankle Surgery
DX: L03.116 Cellulitis of left lower limb (principal); E11.22 Type 2 diabetes mellitus with diabetic chronic kidney disease; N18.6 End stage renal disease; Z99.2 Dependence on renal dialysis; R60.0 Localized edema
CPT/HCPCS: A6452; G0463

== ENCOUNTER 2021-07-07 09:26 | Outpatient (CLI) | payer MEDICARE, OTHER | END 2021-07-07 23:59 | disposition home or self-care (01) | LOC: MSC 09:26 | PROVIDERS: ATTEND Internal Medicine | DX: M54.50 Low back pain, unspecified (principal); M79.669 Pain in unspecified lower leg; M62.81 Muscle weakness (generalized); R63.0 Anorexia; I95.9 Hypotension, unspecified; M70.31 Other bursitis of elbow, right elbow; R05.9 Cough, unspecified; I12.0 Hypertensive chronic kidney disease with stage 5 chronic kidney disease or end stage renal disease; N18.6 End stage renal disease; Z99.2 Dependence on renal dialysis; L29.9 Pruritus, unspecified; Z87.19 Personal history of other diseases of the digestive system; F41.9 Anxiety disorder, unspecified; R53.81 Other malaise; I25.10 Atherosclerotic heart disease of native coronary artery without angina pectoris; D64.9 Anemia, unspecified; Z79.899 Other long term (current) drug therapy ==

== ENCOUNTER 2021-07-10 09:00 | Outpatient (CLI) | payer MEDICARE, OTHER ==
[2021-07-10] MEDS ORDERED: CLOTRIMAZOLE 1% 15 GM TUBE TP ONE (09:44)
[2021-07-10 10:34] LABS: BASOPHILS # (AUTO) 0.1 K/uL (0.0-0.2); BASOPHILS % (AUTO) 0.9 % (0.0-2.0); EOSINOPHILS % (AUTO) 5.1 % (0.0-6.0); HEMATOCRIT 26 % (39-51); HEMOGLOBIN 8.7 g/dL (13.5-17.5); LYMPHOCYTES # (AUTO) 0.5 K/uL (0.8-4.8); LYMPHOCYTES % (AUTO) 7.7 % (20.0-44.0); MEAN CORPUSCULAR HGB CONC 33 g/dl (31.0-36.0); MEAN CORPUSCULAR VOLUME 92 fL (80-96); MONOCYTES # (AUTO) 0.6 K/uL (0.1-1.30); MONOCYTES % (AUTO) 7.9 % (2.0-12.0); NEUTROPHILS # (AUTO) 5.6 K/uL (1.8-8.9); NEUTROPHILS % (AUTO) 78.4 % (43.0-81.0); PLATELET COUNT (AUTO) 186 K/uL (150-450); RED BLOOD CELL COUNT(AUTO) 2.85 MIL/uL (4.5-6.0); WHITE BLOOD COUNT (AUTO) 7.1 K/uL (4.3-11.0)
== END 2021-07-10 23:59 | disposition home or self-care (01) ==
LOC: WOU 09:00
PROVIDERS: ATTEND Podiatrist Foot & Ankle Surgery
DX: L03.116 Cellulitis of left lower limb (principal); R60.0 Localized edema; I12.0 Hypertensive chronic kidney disease with stage 5 chronic kidney disease or end stage renal disease; N18.6 End stage renal disease; Z99.2 Dependence on renal dialysis
CPT/HCPCS: 36415; 85025; 85652; 86140; G0463

== ENCOUNTER 2021-07-14 13:08 | Outpatient (CLI) | payer MEDICARE, OTHER | END 2021-07-14 23:59 | disposition home or self-care (01) | LOC: MRI 13:08 | PROVIDERS: ATTEND Podiatrist Foot & Ankle Surgery | DX: M89.8X7 Other specified disorders of bone, ankle and foot (principal); M76.812 Anterior tibial syndrome, left leg; M62.572 Muscle wasting and atrophy, not elsewhere classified, left ankle and foot; R60.0 Localized edema | CPT/HCPCS: 73718-TC; 73721-TC ==

== ENCOUNTER 2021-09-29 09:04 | Outpatient (CLI) | payer MEDICARE, OTHER | END 2021-09-29 23:59 | disposition home or self-care (01) | LOC: MSC 09:04 | PROVIDERS: ATTEND Anesthesiology | DX: M48.54XD Collapsed vertebra, not elsewhere classified, thoracic region, subsequent encounter for fracture with routine healing (principal); M51.26 Other intervertebral disc displacement, lumbar region; M47.817 Spondylosis without myelopathy or radiculopathy, lumbosacral region; M62.830 Muscle spasm of back; Z79.891 Long term (current) use of opiate analgesic; Z99.2 Dependence on renal dialysis ==

== ENCOUNTER 2021-10-01 09:26 | Outpatient (CLI) | payer MEDICARE, OTHER | END 2021-10-01 23:59 | disposition home or self-care (01) | LOC: MSC 09:26 | PROVIDERS: ATTEND Internal Medicine | DX: R63.0 Anorexia (principal); Z68.23 Body mass index [BMI] 23.0-23.9, adult; F41.8 Other specified anxiety disorders; M62.81 Muscle weakness (generalized); M54.50 Low back pain, unspecified; I95.9 Hypotension, unspecified; M70.31 Other bursitis of elbow, right elbow; I12.0 Hypertensive chronic kidney disease with stage 5 chronic kidney disease or end stage renal disease; N18.6 End stage renal disease; Z99.2 Dependence on renal dialysis; L29.9 Pruritus, unspecified; R53.81 Other malaise; I25.10 Atherosclerotic heart disease of native coronary artery without angina pectoris; D64.9 Anemia, unspecified; Z79.899 Other long term (current) drug therapy ==

== ENCOUNTER 2021-10-20 09:27 | Outpatient (CLI) | payer MEDICARE, OTHER | END 2021-10-20 23:59 | disposition home or self-care (01) | LOC: MSC 09:27 | PROVIDERS: ATTEND Internal Medicine | DX: R82.81 Pyuria (principal); R63.0 Anorexia; M62.81 Muscle weakness (generalized); M54.50 Low back pain, unspecified; F41.9 Anxiety disorder, unspecified; M79.669 Pain in unspecified lower leg; R05.9 Cough, unspecified; I12.0 Hypertensive chronic kidney disease with stage 5 chronic kidney disease or end stage renal disease; N18.6 End stage renal disease; Z99.2 Dependence on renal dialysis; L29.9 Pruritus, unspecified; R53.81 Other malaise; I25.10 Atherosclerotic heart disease of native coronary artery without angina pectoris; D64.9 Anemia, unspecified; Z79.899 Other long term (current) drug therapy ==

== ENCOUNTER → 2021-10-27 | Outpatient (CLI) | payer MEDICARE, OTHER | END | disposition home or self-care (01) | LOC: MSC 09:11 | PROVIDERS: ATTEND Anesthesiology | DX: M47.26 Other spondylosis with radiculopathy, lumbar region (principal); M51.26 Other intervertebral disc displacement, lumbar region; M48.54XD Collapsed vertebra, not elsewhere classified, thoracic region, subsequent encounter for fracture with routine healing; M62.830 Muscle spasm of back; Z79.891 Long term (current) use of opiate analgesic ==

== ENCOUNTER 2021-11-17 08:51 | Outpatient (CLI) | payer MEDICARE, OTHER | END 2021-11-17 23:59 | disposition home or self-care (01) | LOC: LAB 08:51 | PROVIDERS: ATTEND Anesthesiology | DX: Z01.812 Encounter for preprocedural laboratory examination (principal); Z20.822 Contact with and (suspected) exposure to COVID-19 | CPT/HCPCS: U0003; C9803 ==

== ENCOUNTER 2021-11-23 10:22 | Day surgery (SDC) | payer MEDICARE, OTHER ==
[2021-11-23 10:30] VITALS: BP 186/74
--- NOTE | 2021-11-23 10:30 | NUR ---
DAY SURGERY PT RECEIVED IN DAY SURGERY, A/OX4, AMBULATORY , ON RA, STABLE , NO IV NEEDED PER MD ORDER, CHECK LIST DONE, CONTINUE TO MONITOR
[2021-11-23] MEDS ORDERED: LIDOCAINE 1% INJ 50 ML MDV IJ ONE (10:37)
[2021-11-23] MEDS ORDERED: BUPIVACAINE 0.25% 75 MG/30 ML VIAL ONE (10:37)
[2021-11-23] MEDS ORDERED: methylPREDNISolone ACETATE 80 MG/ML VIAL ONE (10:37)
--- NOTE | 2021-11-23 10:40 | NUR ---
DAY SURGERY PT TO OR AT THIS TIME Addendum: 11/23/21 at 1100 by LYNDA GONZALEZ RN BP =[phone], PT IS GOING TO DIALYSIS CENTER AFTER PROCEDURE. MD ROMO .
[2021-11-23] MEDS ORDERED: DEXAMETHASONE SOD PHOSPHATE 10 MG/ML VIAL ONE (10:47)
--- NOTE | 2021-11-23 11:21 | NUR ---
RN NOTES DISCHARGE INSTRUCTION GIVEN TO PT , VERBALIZES UNDERSTANDING , PT GOING TO HD AFTER DISCHARGE, PT LEFT THE FLOOR TO MAIN ENTRANCE AMBULATORY IN STABLE CONDITION, ACCOMPANIED BY STAFF MEMBER IN STABLE CONDITION.
== END 2021-11-23 11:21 | disposition home or self-care (01) ==
LOC: DS 10:22
PROVIDERS: ATTEND Anesthesiology
DX: M47.26 Other spondylosis with radiculopathy, lumbar region (principal)
CPT/HCPCS: 64483; 72020; 64484; J1040; J1100; J3490 ×2

== ENCOUNTER 2021-12-08 09:45 | Outpatient (CLI) | payer MEDICARE, OTHER | END 2021-12-08 23:59 | disposition home or self-care (01) | LOC: MSC 09:45 | PROVIDERS: ATTEND Internal Medicine | DX: R53.83 Other fatigue (principal); R50.9 Fever, unspecified; R63.0 Anorexia; M62.81 Muscle weakness (generalized); R82.81 Pyuria; M54.50 Low back pain, unspecified; F41.9 Anxiety disorder, unspecified; M79.669 Pain in unspecified lower leg; R05.9 Cough, unspecified; I12.0 Hypertensive chronic kidney disease with stage 5 chronic kidney disease or end stage renal disease; N18.6 End stage renal disease; Z99.2 Dependence on renal dialysis; L29.9 Pruritus, unspecified; R53.81 Other malaise; I25.10 Atherosclerotic heart disease of native coronary artery without angina pectoris; D64.9 Anemia, unspecified; Z79.899 Other long term (current) drug therapy ==

== ENCOUNTER 2021-12-10 10:15 | Outpatient (CLI) | payer MEDICARE, OTHER | END 2021-12-10 23:59 | disposition home or self-care (01) | LOC: MSC 10:15 | PROVIDERS: ATTEND Internal Medicine | DX: R53.1 Weakness (principal); R50.9 Fever, unspecified; R79.82 Elevated C-reactive protein (CRP); R63.0 Anorexia; F41.8 Other specified anxiety disorders; R82.81 Pyuria; M54.50 Low back pain, unspecified; M79.669 Pain in unspecified lower leg; I12.0 Hypertensive chronic kidney disease with stage 5 chronic kidney disease or end stage renal disease; N18.6 End stage renal disease; Z99.2 Dependence on renal dialysis; L29.9 Pruritus, unspecified; R53.81 Other malaise; I25.10 Atherosclerotic heart disease of native coronary artery without angina pectoris; D64.9 Anemia, unspecified; Z79.899 Other long term (current) drug therapy ==

== ENCOUNTER 2022-02-23 09:24 | Outpatient (CLI) | payer MEDICARE, OTHER | END 2022-02-23 23:59 | disposition home or self-care (01) | LOC: MSC 09:24 | PROVIDERS: ATTEND Anesthesiology | DX: M47.26 Other spondylosis with radiculopathy, lumbar region (principal); M51.26 Other intervertebral disc displacement, lumbar region; M62.830 Muscle spasm of back; M40.299 Other kyphosis, site unspecified; M79.605 Pain in left leg; M48.54XD Collapsed vertebra, not elsewhere classified, thoracic region, subsequent encounter for fracture with routine healing; Z99.2 Dependence on renal dialysis; Z79.891 Long term (current) use of opiate analgesic; Z79.899 Other long term (current) drug therapy ==

== ENCOUNTER 2022-05-04 09:08 | Outpatient (CLI) | payer MEDICARE, OTHER | END 2022-05-04 23:59 | disposition home or self-care (01) | LOC: MSC 09:08 | PROVIDERS: ATTEND Anesthesiology | DX: M51.26 Other intervertebral disc displacement, lumbar region (principal); M47.26 Other spondylosis with radiculopathy, lumbar region; M48.54XD Collapsed vertebra, not elsewhere classified, thoracic region, subsequent encounter for fracture with routine healing; M62.830 Muscle spasm of back; M40.299 Other kyphosis, site unspecified; Z79.891 Long term (current) use of opiate analgesic; Z99.2 Dependence on renal dialysis ==

== ENCOUNTER 2022-06-01 09:00 | Outpatient (CLI) | payer MEDICARE, OTHER | END 2022-06-01 23:59 | disposition home or self-care (01) | LOC: MSC 09:00 | PROVIDERS: ATTEND Anesthesiology | DX: M51.26 Other intervertebral disc displacement, lumbar region (principal); M47.26 Other spondylosis with radiculopathy, lumbar region; M48.54XD Collapsed vertebra, not elsewhere classified, thoracic region, subsequent encounter for fracture with routine healing; M62.830 Muscle spasm of back; M40.299 Other kyphosis, site unspecified; Z79.891 Long term (current) use of opiate analgesic ==

== ENCOUNTER 2022-06-29 09:06 | Outpatient (CLI) | payer MEDICARE, OTHER | END 2022-06-29 23:59 | disposition home or self-care (01) | LOC: MSC 09:06 | PROVIDERS: ATTEND Anesthesiology | DX: M48.54XD Collapsed vertebra, not elsewhere classified, thoracic region, subsequent encounter for fracture with routine healing (principal); M51.26 Other intervertebral disc displacement, lumbar region; M47.26 Other spondylosis with radiculopathy, lumbar region; M62.830 Muscle spasm of back; M40.299 Other kyphosis, site unspecified; Z79.891 Long term (current) use of opiate analgesic ==

== ENCOUNTER → 2022-07-27 | Outpatient (CLI) | payer MEDICARE, OTHER | END | disposition home or self-care (01) | LOC: MSC 09:17 | PROVIDERS: ATTEND Anesthesiology | DX: M51.26 Other intervertebral disc displacement, lumbar region (principal); M47.26 Other spondylosis with radiculopathy, lumbar region; M48.54XD Collapsed vertebra, not elsewhere classified, thoracic region, subsequent encounter for fracture with routine healing; M62.830 Muscle spasm of back; M40.299 Other kyphosis, site unspecified; Z79.891 Long term (current) use of opiate analgesic; Z99.2 Dependence on renal dialysis ==

== ENCOUNTER 2022-10-14 10:26 | Outpatient (CLI) | payer MEDICARE, OTHER | END 2022-10-14 23:59 | disposition home or self-care (01) | LOC: MSC 10:26 | PROVIDERS: ATTEND Internal Medicine | DX: R06.02 Shortness of breath (principal); E87.70 Fluid overload, unspecified; R50.9 Fever, unspecified; R53.1 Weakness; R63.0 Anorexia; I12.0 Hypertensive chronic kidney disease with stage 5 chronic kidney disease or end stage renal disease; N18.6 End stage renal disease; Z99.2 Dependence on renal dialysis; R79.82 Elevated C-reactive protein (CRP); F41.8 Other specified anxiety disorders; R82.81 Pyuria; M54.50 Low back pain, unspecified; Z79.899 Other long term (current) drug therapy; M79.669 Pain in unspecified lower leg; L29.9 Pruritus, unspecified; R53.81 Other malaise; I25.10 Atherosclerotic heart disease of native coronary artery without angina pectoris; D64.9 Anemia, unspecified | CPT/HCPCS: 71046; G0463 ==

== ENCOUNTER → 2023-10-20 | Outpatient (CLI) | payer MEDICARE | END | disposition home or self-care (01) | LOC: MSC 15:00 | PROVIDERS: ATTEND Internal Medicine | DX: R19.03 Right lower quadrant abdominal swelling, mass and lump (principal); R30.0 Dysuria; M89.9 Disorder of bone, unspecified; K59.00 Constipation, unspecified; R74.8 Abnormal levels of other serum enzymes; I12.0 Hypertensive chronic kidney disease with stage 5 chronic kidney disease or end stage renal disease; N18.6 End stage renal disease; Z99.2 Dependence on renal dialysis; E87.70 Fluid overload, unspecified; R63.0 Anorexia; R53.1 Weakness; R50.9 Fever, unspecified; F41.8 Other specified anxiety disorders; D64.9 Anemia, unspecified; L29.9 Pruritus, unspecified; R53.81 Other malaise; I25.10 Atherosclerotic heart disease of native coronary artery without angina pectoris ==

== ENCOUNTER 2023-10-25 10:05 | Outpatient (CLI) | payer MEDICARE | END 2023-10-25 23:59 | disposition home or self-care (01) | LOC: MSC 10:05 | PROVIDERS: ATTEND Anesthesiology | DX: M19.011 Primary osteoarthritis, right shoulder (principal); M48.54XD Collapsed vertebra, not elsewhere classified, thoracic region, subsequent encounter for fracture with routine healing; M51.26 Other intervertebral disc displacement, lumbar region; M47.26 Other spondylosis with radiculopathy, lumbar region; M62.830 Muscle spasm of back; M40.299 Other kyphosis, site unspecified; Z79.891 Long term (current) use of opiate analgesic | CPT/HCPCS: 20610; J0702; J3490 ==

== ENCOUNTER 2023-11-15 12:37 | Emergency (ER) | payer MEDICARE, OTHER ==
[~2023-11-15] VITALS: Ht 157.5 cm; Wt 63.5 kg
[2023-11-15] MEDS ORDERED: CYCL5TAB PO (16:50)
[2023-11-15] MEDS: ACETAMINOPHEN ES 500 MG TABLET PO ONE (17:23)
[2023-11-15] MEDS: LIDOCAINE 5% (PATCH) 1 EA PATCH TP ONE (17:23)
[2023-11-15] MEDS: CYCLOBENZAPRINE 10 MG TABLET PO ONE (17:23)
[2023-11-15 17:24] VITALS: BP 128/76; TEMP 98.3; O2SAT 97
== END 2023-11-15 17:26 | disposition home or self-care (01) ==
LOC: ER 12:47
DX: G89.29 Other chronic pain (principal); M54.89 Other dorsalgia; M54.2 Cervicalgia; M25.511 Pain in right shoulder; M79.621 Pain in right upper arm; I12.0 Hypertensive chronic kidney disease with stage 5 chronic kidney disease or end stage renal disease; E11.22 Type 2 diabetes mellitus with diabetic chronic kidney disease; N18.6 End stage renal disease; E78.00 Pure hypercholesterolemia, unspecified; Z99.2 Dependence on renal dialysis
CPT/HCPCS: 73030-TC; 73060-TC

== ENCOUNTER 2024-04-02 10:16 | Inpatient (IN) | payer MEDICARE, OTHER ==
[~2024-04-02] VITALS: Ht 167.6 cm; Wt 67.1 kg
[~2024-04-02 10:16] MED LIST changes: +CYCL5TAB PO
[2024-04-02 10:56] LABS: BASOPHILS # (AUTO) 0.1 K/uL (0.0-0.2); EOSINOPHILS # (AUTO) 0.3 K/uL (0.0-0.7); HEMATOCRIT 28 % (39-51); HEMOGLOBIN 9.5 g/dL (13.5-17.5); LYMPHOCYTES # (AUTO) 0.8 K/uL (0.8-4.8); LYMPHOCYTES % (AUTO) 10.8 % (20.0-44.0); MEAN CORPUSCULAR HEMOGLOBIN 33 PG (26.0-33.0); MEAN CORPUSCULAR HGB CONC 34 g/dl (31.0-36.0); MEAN CORPUSCULAR VOLUME 97 fL (80-96); MONOCYTES # (AUTO) 0.7 K/uL (0.1-1.30); MONOCYTES % (AUTO) 9.4 % (2.0-12.0); NEUTROPHILS # (AUTO) 5.7 K/uL (1.8-8.9); NEUTROPHILS % (AUTO) 74.8 % (43.0-81.0); PLATELET COUNT (AUTO) 144 K/uL (150-450); WHITE BLOOD COUNT (AUTO) 7.6 K/uL (4.3-11.0)
[2024-04-02 11:12] LABS: ACETAMINOPHEN 53 ug/ml (10-30); ALANINE AMINOTRANSFERASE 19 U/L (12-78); ALBUMIN 3.9 g/dL (3.4-5.0); ALCOHOL, BLOOD < 3 mg/dL (0-10); ALKALINE PHOSPHATASE 273 U/L (46-116); ASPARTATE AMINOTRANSFERASE 36 U/L (15-37); BILIRUBIN,DIRECT 0.2 mg/dL (0.0-0.2); BILIRUBIN,TOTAL 0.5 mg/dL (0.2-1.0); CALCIUM, SERUM 8.8 mg/dL (8.5-10.1); CARBON DIOXIDE 28 mmol/L (21-32); CHLORIDE 92 mmol/L (98-107); GLUCOSE 141 mg/dL (74-106); SALICYLATE 2.9 mg/dL (2.8-20.0); SODIUM SERUM 131 mmol/L (136-145); TOTAL PROTEIN, SERUM 7.4 g/dL (6.4-8.2); UREA NITROGEN, BLOOD 75 mg/dL (7-18)
[2024-04-02 11:20] LABS: CREATININE 8.8 mg/dL (0.6-1.3)
[2024-04-02] MEDS ORDERED: ACETYLCYSTEINE IV 0 MG in IV D5W 200 ML IV SCH (11:30)
[2024-04-02] MEDS ORDERED: Z GUARD REMEDY 4 OZ OINT TP PRN (12:00)
[2024-04-02] MEDS ORDERED: MAGNESIUM HYDROXIDE 30 ML UDC PO PRN (12:00)
[2024-04-02] MEDS ORDERED: MAG HYDROX/AL HYDROX/SIMETH 30 ML UDC PO PRN (12:00)
[2024-04-02] MEDS ORDERED: ACETAMINOPHEN 325 MG TABLET PO PRN (12:00)
[2024-04-02] MEDS: ACETYLCYSTEINE IV SCH ×2 (12:16→14:31)
[2024-04-02] MEDS: D5W IV SCH ×2 (12:16→14:31)
[2024-04-02] MEDS ORDERED: ONDANSETRON HCL/PF 4 MG/2 ML VIAL ONE (12:24)
[2024-04-02] MEDS: ONDANSETRON HCL/PF 4 MG/2 ML VIAL IVP PRN (12:25)
[2024-04-02] MEDS ORDERED: OXYC1TAB12 PO (14:46)
[2024-04-02 16:26] VITALS: BP 130/50; TEMP 97.6; O2SAT 100
[2024-04-02 20:00] VITALS: BP 136/45; TEMP 97.9; O2SAT 100
[2024-04-03] VITALS: BP 138/42; TEMP 98.8; O2SAT 100
[2024-04-03] MEDS: LIDOCAINE 5% (PATCH) 1 EA PATCH TP SCH (01:21)
[2024-04-03] MEDS: PREGABALIN 25 MG CAPSULE PO SCH (01:21)
[2024-04-03 04:00] VITALS: BP 133/56; TEMP 98.4; O2SAT 100
[2024-04-03 06:53] LABS: BASOPHILS % (AUTO) 1.1 % (0.0-2.0); EOSINOPHILS % (AUTO) 1.2 % (0.0-6.0); HEMATOCRIT 30 % (39-51); HEMOGLOBIN 9.7 g/dL (13.5-17.5); LYMPHOCYTES # (AUTO) 0.3 K/uL (0.8-4.8); MEAN CORPUSCULAR HEMOGLOBIN 33 PG (26.0-33.0); MEAN CORPUSCULAR HGB CONC 33 g/dl (31.0-36.0); MEAN CORPUSCULAR VOLUME 100 fL (80-96); MONOCYTES # (AUTO) 0.5 K/uL (0.1-1.30); MONOCYTES % (AUTO) 12.5 % (2.0-12.0); NEUTROPHILS # (AUTO) 3.2 K/uL (1.8-8.9); NEUTROPHILS % (AUTO) 77.2 % (43.0-81.0); PLATELET COUNT (AUTO) 114 K/uL (150-450); RED BLOOD CELL COUNT(AUTO) 2.98 MIL/uL (4.5-6.0); RED CELL DISTRIBUTION WIDTH 12.9 % (11.5-15.0); WHITE BLOOD COUNT (AUTO) 4.2 K/uL (4.3-11.0)
[2024-04-03 07:08] LABS: CALCIUM, SERUM 9.9 mg/dL (8.5-10.1); CREATININE 6.1 mg/dL (0.6-1.3); MAGNESIUM 2.4 mg/dL (1.8-2.4); PHOSPHORUS 6.5 mg/dL (2.5-4.9); POTASSIUM 4.6 mmol/L (3.5-5.1)
[2024-04-03 08:42] LABS: ALBUMIN 3.1 g/dL (3.4-5.0); BILIRUBIN,DIRECT 0.2 mg/dL (0.0-0.2); BILIRUBIN,TOTAL 0.4 mg/dL (0.2-1.0)
[2024-04-03] MEDS ORDERED: Medication Not On Formulary EA (Sucroferric Oxyhydroxide (Velphoro) 500 MG) PO SCH (09:00)
[2024-04-03] MEDS: CINACALCET HCL 30 MG TABLET PO SCH (09:53)
[2024-04-03] MEDS: ASPIRIN EC 81 MG TABLET.DR PO SCH (09:54)
[2024-04-03] MEDS: CARVEDILOL 6.25 MG TABLET PO SCH (09:54)
[2024-04-03] MEDS: LOSARTAN POTASSIUM 50 MG TABLET PO SCH (09:56)
[2024-04-03] MEDS: DULOXETINE HCL 30 MG CAPSULE.DR PO SCH (12:46)
[2024-04-03] MEDS: SEVELAMER CARBONATE 800 MG TABLET PO SCH (12:47)
[2024-04-03 15:28] LABS: BILIRUBIN,DIRECT 0.2 mg/dL (0.0-0.2); BILIRUBIN,TOTAL 0.4 mg/dL (0.2-1.0); TOTAL PROTEIN, SERUM 6.8 g/dL (6.4-8.2)
[2024-04-03] MEDS: oxyCODONE IR immediate release 5 MG TABLET PO PRN (16:14)
[2024-04-03] MEDS ORDERED: ACETYLCYSTEINE IV SCH (18:00)
[2024-04-03] MEDS ORDERED: D5W IV SCH (18:00)
[2024-04-03] MEDS: D5W IV SCH (18:47)
[2024-04-03] MEDS: ACETYLCYSTEINE IV SCH (18:47)
[2024-04-03 20:00] VITALS: BP 140/42; TEMP 98.4; O2SAT 99
[2024-04-04] VITALS: BP 101/79; TEMP 98.6; O2SAT 99
[2024-04-04 04:00] VITALS: BP 120/59; TEMP 99; O2SAT 95
[2024-04-04 08:00] VITALS: BP 139/39; TEMP 98.4; O2SAT 98
[2024-04-04] MEDS ORDERED: METOCLOPRAMIDE HCL 10 MG/2 ML VIAL IV PRN (13:00)
[2024-04-04] MEDS: ONDANSETRON HCL/PF 4 MG/2 ML VIAL IVP PRN (14:53)
[2024-04-04 16:00] VITALS: BP 129/60; TEMP 98.2; O2SAT 98
[2024-04-04 20:00] VITALS: BP 145/59; TEMP 98.1; O2SAT 96
[2024-04-05] VITALS (7 sets, daily range): BP systolic 125–165; BP diastolic 47–56; TEMP 97.7–98; O2SAT 90–100
[2024-04-05 11:38] LABS: BASOPHILS % (AUTO) 0.7 % (0.0-2.0); EOSINOPHILS % (AUTO) 0.1 % (0.0-6.0); HEMATOCRIT 26 % (39-51); LYMPHOCYTES # (AUTO) 0.3 K/uL (0.8-4.8); LYMPHOCYTES % (AUTO) 7.3 % (20.0-44.0); MEAN CORPUSCULAR HEMOGLOBIN 34 PG (26.0-33.0); MEAN CORPUSCULAR HGB CONC 35 g/dl (31.0-36.0); MEAN CORPUSCULAR VOLUME 96 fL (80-96); MONOCYTES # (AUTO) 0.4 K/uL (0.1-1.30); MONOCYTES % (AUTO) 7.6 % (2.0-12.0); NEUTROPHILS % (AUTO) 84.3 % (43.0-81.0); PLATELET COUNT (AUTO) 122 K/uL (150-450); RED BLOOD CELL COUNT(AUTO) 2.69 MIL/uL (4.5-6.0); RED CELL DISTRIBUTION WIDTH 12.7 % (11.5-15.0); WHITE BLOOD COUNT (AUTO) 4.8 K/uL (4.3-11.0)
[2024-04-05 12:10] LABS: ALBUMIN 3.4 g/dL (3.4-5.0); BILIRUBIN,TOTAL 0.4 mg/dL (0.2-1.0); CALCIUM, SERUM 9.8 mg/dL (8.5-10.1); CREATININE 6.4 mg/dL (0.6-1.3); MAGNESIUM 2.3 mg/dL (1.8-2.4); PHOSPHORUS 7.1 mg/dL (2.5-4.9); POTASSIUM 4.8 mmol/L (3.5-5.1); TOTAL PROTEIN, SERUM 6.7 g/dL (6.4-8.2)
[2024-04-05] MEDS ORDERED: OXYC5CAP18 PO (14:30)
[2024-04-05] MEDS ORDERED: DULO30CA2 PO (14:30)
[2024-04-05] MEDS ORDERED: PREG25CA PO (14:30)
[2024-04-05] MEDS ORDERED: EPOETIN ALFA (10,000 UNIT) 10,000 UNIT/ML VIAL SQ SCH (15:00)
== END 2024-04-05 19:48 | DRG 917 ==
LOC: ER 10:18 → TELE 14:15
PROVIDERS: ADMIT Internal Medicine; ATTEND Nurse Practitioner Acute Care
PROC: 5A1D70Z Performance of Urinary Filtration, Intermittent, Less than 6 Hours Per Day (ICD-10-PCS; principal; 2024-04-02)
DX: T39.1X2A Poisoning by 4-Aminophenol derivatives, intentional self-harm, initial encounter (principal); N18.6 End stage renal disease; I12.0 Hypertensive chronic kidney disease with stage 5 chronic kidney disease or end stage renal disease; E87.1 Hypo-osmolality and hyponatremia; F03.93 Unspecified dementia, unspecified severity, with mood disturbance; R45.851 Suicidal ideations; Y92.89 Other specified places as the place of occurrence of the external cause; Z99.2 Dependence on renal dialysis; E78.00 Pure hypercholesterolemia, unspecified; E11.22 Type 2 diabetes mellitus with diabetic chronic kidney disease; E11.40 Type 2 diabetes mellitus with diabetic neuropathy, unspecified; Z79.82 Long term (current) use of aspirin; Z79.899 Other long term (current) drug therapy; Y92.9 Unspecified place or not applicable; F43.23 Adjustment disorder with mixed anxiety and depressed mood; F39 Unspecified mood [affective] disorder; M89.8X9 Other specified disorders of bone, unspecified site; M75.121 Complete rotator cuff tear or rupture of right shoulder, not specified as traumatic; E87.70 Fluid overload, unspecified; G89.4 Chronic pain syndrome; G54.0 Brachial plexus disorders; M62.521 Muscle wasting and atrophy, not elsewhere classified, right upper arm
CPT/HCPCS: 36415; 70450-TC; 71045-TC; 80048-TC; 80053-TC; 80076-TC; 82962-TC; 83735-TC; 84100-TC; 85025-TC; 87081-TC; 90935-TC; 98960; A4223; G0378; G0480; J0132; J2405; J7030; J7060; J7070